=== PATIENT | female | born 1940 | race Caucasian/White ===

== ENCOUNTER → 2023-02-07 | Outpatient (REF) | payer MEDICARE ==
[~2023-02-07] MED LIST: ALENDRONATE SOD70 MG PO; ATENOLOL-CHLOR1 EAC1; ATENOLOL50 MG PO; CRANBERRY PO; FLORASTOR250 MG PO; LEXAPRO5 MG PO; LORTAB 51 EA PO; MICARDIS80 MG; MICARDIS80 MG PO; NORCO 7.5-3251 EACH PO; NORVASC5 MG PO; OMEGA 3 PO; PANTOPRAZOLE SO40 MG PO; VITAMIN D PO
== END ==
LOC: US 07:42
PROVIDERS: ATTEND Nurse Practitioner
DX: K58.0 Irritable bowel syndrome with diarrhea (principal)
CPT/HCPCS: 76700